=== PATIENT | female | born 1950 | race African-American/Black ===

== ENCOUNTER 2020-08-03 11:36 | Emergency (ER) | payer MEDICARE, OTHER ==
[~2020-08-03] VITALS: Ht 160 cm; Wt 118.0 kg
[2020-08-03] MEDS ORDERED: CHOL500063 MT (11:57)
[2020-08-03] MEDS ORDERED: POLY250017 MT (11:57)
[2020-08-03] MEDS ORDERED: LOSA50TA41 MT (11:57)
[2020-08-03] MEDS ORDERED: CYAN100T45 PO (11:57)
[2020-08-03] MEDS ORDERED: ALBU2.5V13 IH (11:57)
[2020-08-03] MEDS ORDERED: POTA20TA82 MT (11:57)
[2020-08-03] MEDS ORDERED: PROM25TA13 MT (11:57)
[2020-08-03] MEDS ORDERED: NITR0.4T49 SL (11:57)
[2020-08-03] MEDS ORDERED: ATOR40TA70 MT (11:57)
[2020-08-03] MEDS ORDERED: FLUT1DIS3 INH (11:57)
[2020-08-03] MEDS ORDERED: ALPR-392 MT (11:57)
[2020-08-03] MEDS ORDERED: ASPI-1497 MT (11:57)
[2020-08-03 13:14] LABS: CHLORIDE 105 mEq/L (98-107)
[2020-08-03 13:18] LABS: BASOPHILS % 0.5 % (0.0-2.0); EOSINOPHILS % 2.2 % (0.0-5.0); HEMATOCRIT. 41.1 % (36.0-48.0); HEMOGLOBIN. 13.4 g/dL (12.0-16.0); LYMPHOCYTES % 40.1 % (20.0-50.0); MEAN CORPUSCULAR HEMOGLOBIN 27.5 pg (28.0-32.0); MEAN CORPUSCULAR VOLUME 84.5 fL (81.0-99.0); MEAN PLATELET VOLUME 8.4 fl (7.4-10.4); MONOCYTES % 9.4 % (2.0-8.0); NEUTROPHILS % 47.8 % (40.0-76.0); PLATELET 259 x1000/uL (130-400); RED BLOOD CELL COUNT 4.86 mill/uL (4.2-5.4); RED CELL DISTRIBUTION WIDTH 14.6 % (11.6-14.6)
[2020-08-03] MEDS ORDERED: IOHEXOL-350 100 ML BOTTLE ONE (15:29)
[2020-08-03 16:50] VITALS: BP 135/89
== END 2020-08-03 17:13 | disposition home or self-care (01) ==
LOC: ER 11:36
DX: R07.89 Other chest pain (principal); R53.1 Weakness; R53.83 Other fatigue; I11.0 Hypertensive heart disease with heart failure; I50.9 Heart failure, unspecified; J45.909 Unspecified asthma, uncomplicated; I25.2 Old myocardial infarction; Z86.73 Personal history of transient ischemic attack (TIA), and cerebral infarction without residual deficits; Z90.49 Acquired absence of other specified parts of digestive tract; Z79.899 Other long term (current) drug therapy
CPT/HCPCS: 36415; 71045; 71275; 73030; 80053; 83880; 84484; 85025; 85379; 93005; 99285; Q9967